=== PATIENT | male | born 1950 | race Caucasian/White ===

== ENCOUNTER → 2016-08-30 | Day surgery (SDC) | payer BC ==
[~2016-08-30] MED LIST: ACETAMINOPHEN PO; ALPRAZOLAM PO; AMLODIPINE BESY10 MG PO; ANTIVERT12.5 MG PO; ARAVA10 MG PO; ASPIRIN325 M1 PO; ATENOLOL PO; ATIVAN2 MG PO; LEVOXYL50 MC1 PO; MEVACOR PO; OMEPRAZOLE20 M2 PO; PRAVASTATIN SOD40 MG PO; PRILOSEC PO; SULFADIAZINE500 M1 PO
--- NOTE | ~2016-08-30 | OR ---
Unit #: [id number] #: [id number] Patient: TONI GRIFFITH [id number] [address] [place], [place] [address] [id number] O MR#: [id number] NAME: TONI GRIFFITH ROOM: Date of Procedure: 08/30/2016 Admission Date: 08/30/2016 Surgeon: Thanh Vigil M.D. : 1950 Attending Physician: Thanh Vigil M.D. Primary Care Physician: Juan Herring M.D. OPERATIVE REPORT PREOPERATIVE DIAGNOSES Dysphagia. The patient has foreign body sensation as well as episodes of solid food impaction of the esophagus frequently. PROCEDURES PERFORMED Upper gastrointestinal endoscopy and biopsy. POSTOPERATIVE DIAGNOSES 1. Skqr-zw-skpixxns prepyloric antral gastritis. 2. There was extrinsic impression in the mid esophagus, the etiology of which is unclear; however, no intrinsic stricture was seen. 3. An inlet patch in the proximal esophagus and island of columnar mucosa, which is coincidental. 4. Rest of the examination up to third part of duodenum was normal. RECOMMENDATIONS 1. An outpatient CT scan of the chest is being done to look for any extrinsic pressure on the esophagus accounting for the endoscopic appearances. 2. The results of the CLOtest to be followed up in the outpatient clinic. 3. The patient is advised to increase the dose of omeprazole from 20 mg p.o. daily to 40 mg p.o. daily. If the CT scan is negative, the patient will have an outpatient ENT evaluation as well as modified swallow study. SEDATION USED MAC. DESCRIPTION OF PROCEDURE Following detailed explanation of potential risks and complications of an upper endoscopy, namely perforation, bleeding, and complication related to sedation, the patient was brought to GI lab and laid in the left lateral decubitus position. Lubricated tip of the Olympus video upper endoscope was passed through the bite block into the proximal esophagus under direct vision. The entire esophageal mucosa was examined. The patient was noted to have an inlet patch in the proximal esophagus with islands of columnar mucosa that was circumferential. In addition, there was extrinsic impression or compression seen endoscopically in the mid esophagus. The etiology of this is unclear. The distal esophagus appeared normal. There being no esophagitis nor any evidence of stricture. The scope was then advanced into the gastric cavity and the latter was insufflated. Mucosa of the fundus, body, and antrum was examined. The patient was noted to have fhxu-bu-lzozilbi prepyloric antral diffuse erythema and erosions Unit #: [id number] #: [id number] Patient: TONI GRIFFITH indicating antral gastritis. Pylorus was intubated with visualization of the normal duodenal bulb and second and third part of the duodenum. Upon withdrawal and retroflexion, incisura, cardia, and greater curve was examined and biopsy was obtained from the antrum for CLOtest. The scope was then withdrawn in the distal esophagus. The entire esophageal mucosa was examined all the way up to pharynx. No additional findings were noted. The patient tolerated the procedure without any postprocedure complications. Dictated by... Tao Cottrell/david TD: 08/30/2016 16:13 JOB #: [id number] OPERATIVE REPORT X Thanh Vigil MD X PROCEDURE OPERATIVE NOTE
== END | disposition home or self-care (01) ==
LOC: COPS 10:32
DX: K29.70 Gastritis, unspecified, without bleeding (principal); I10 Essential (primary) hypertension; E78.5 Hyperlipidemia, unspecified; K21.9 Gastro-esophageal reflux disease without esophagitis; Z79.899 Other long term (current) drug therapy; Z96.612 Presence of left artificial shoulder joint; Z98.41 Cataract extraction status, right eye; Z98.42 Cataract extraction status, left eye; Z98.890 Other specified postprocedural states
CPT/HCPCS: 87077

== ENCOUNTER → 2016-09-09 | Outpatient (CLI) | payer BC ==
--- NOTE | ~2016-09-09 | CT55 ---
[facility] A Service of [facility] RADIOLOGY TEXT RESULTS PATIENT: TONI GRIFFITH LOCATION: [facility] : 54 UNIT #: [id number] AGE: [address]: Thanh Vigil MD SEX: M ORDER DR: [id number] [facility] [address]. [place], [place] [address] [id number] O MR#: [id number] [facility] #: [id number] NAME: TONI GRIFFITH : 1950 SEX: M STUDY DATE/TIME: 09/09/2016 UNIT: [facility] ROOM: STUDY DESCRIPTION: CT Chest W Con Attending Physician: Thanh Vigil M.D. Referring Physician: Thanh Vigil M.D. Ordering Physician: Thanh Vigil M.D. Primary Care Physician: Juan Herring M.D. MEDICAL IMAGING REPORT This report is preliminary unless electronic signature is present EXAM CT chest with contrast 09/09/2016 08:34 hours HISTORY 66-year-old man with 2-month history of dysphagia, epigastric compression seen on EGD 2 months ago. COMPARISON Chest x-ray 08/12/[address] images were obtained from the thoracic inlet. Inlet through the adrenal glands. Sagittal and coronal reconstructions were performed. Contrast was Isovue-370 70 mL IV. Total exam DLP 966 mGy-cm. The CT exam was performed with one or more of the following radiation dose reduction techniques: automatic exposure control, adjustment of mA and/or kV according to patient size, and iterative reconstruction. FINDINGS Images through the thoracic inlet demonstrate no thyroid mass or adenopathy. Images through the chest demonstrate an ascending aortic aneurysm which is fusiform measuring up to 4.2 cm. There are coronary artery calcifications present. Cardiac chambers, pericardium and esophagus appear normal. There is no adenopathy. The lungs demonstrate a few small blebs with emphysematous change and calcified granulomatous change. There is no acute pulmonary densities or pleural fluid. Limited views through the upper abdomen demonstrate a normal appearance to [facility] A Service [facility] RADIOLOGY TEXT RESULTS PATIENT: TONI GRIFFITH [id number] [birth year] UNIT #: [id number] AGE: [address]: Thanh Vigil MD SEX: M ORDER DR: the liver, spleen and adrenal glands. The stomach is contracted and unopacified. No gastric mass is seen. There is no definite wall thickening although evaluation is limited by its contracted, unopacified appearance. IMPRESSION 1. There are emphysematous changes present. The lungs are clear with no effusions. 2. There is a fusiform ascending aortic aneurysm measuring up to 4.2 cm. 3. The unopacified esophagus and stomach appear normal. The stomach is contracted. No mass lesion is detected. Dictated by... Tamara Parada M.D. THIS IS AN ELECTRONICALLY VERIFIED REPORT Tamara Parada M.D. at 09/09/2016 3:43 PM SMM/praful TD: 09/09/2016 15:25 JOB #: [id number] MEDICAL IMAGING REPORT COPY
[2016-09-09 08:46] LABS: POC - CREATININE 0.93 mg/dL (0.64-1.27); POC - GFR >60.0 mL/min (>60)
== END | disposition home or self-care (01) ==
LOC: CCAT 07:53
PROVIDERS: Internal Medicine Gastroenterology
DX: R13.10 Dysphagia, unspecified (principal); J43.9 Emphysema, unspecified; I71.4 Abdominal aortic aneurysm, without rupture
CPT/HCPCS: 71260; 82565; Q9967

== ENCOUNTER → 2016-10-28 | Outpatient (CLI) | payer BC, OTHER ==
--- NOTE | ~2016-10-28 | CR97 ---
[facility] A Service of [facility] RADIOLOGY TEXT RESULTS PATIENT: TONI GRIFFITH LOCATION: [facility] : 54 UNIT #: [id number] AGE: [address]: Thanh Vigil MD SEX: M ORDER DR: [id number] [facility] [address] [place], [place] [address] [id number] O MR#: [id number] Acc #: [id number] NAME: TONI GRIFFITH : 1950 SEX: M STUDY DATE/TIME: 10/28/2016 7:50 UNIT: [facility] ROOM: STUDY DESCRIPTION: CR Esophagram Attending Physician: Thanh Vigil M.D. Referring Physician: Thanh Vigil M.D. Ordering Physician: Thanh Vigil M.D. Primary Care Physician: Juan Herring M.D. MEDICAL IMAGING REPORT This report is preliminary unless electronic signature is present EXAM Barium esophagram HISTORY Food getting stuck in esophagus for 2-3 months. EGD 1 month ago with an extrinsic defect. TECHNIQUE Under fluoroscopic control, barium and crystals were administered orally. Swallowing was normal. Patient was placed in the recumbent position and filled views obtained. FINDINGS The patient does have mild aortic ectasia with extrinsic compression upon the esophagus. The esophagus is intrinsically normal. Swallowing was intrinsically normal. There is no evidence of significant hiatal hernia. There is slightly delayed esophageal emptying. Barium capsule was administered and was swallowed without difficulty and passed immediately into the stomach. CONCLUSION Somewhat delayed esophageal emptying which could reflect some changes of presbyesophagus. The esophagus is otherwise normal. Mild aortic ectasia with a prominent impression upon the esophagus. Dictated by... Medhat Forrest M.D. THIS IS AN ELECTRONICALLY VERIFIED REPORT Medhat Forrest M.D. at 10/28/2016 4:52 PM ASHLEY/macey [facility] A Service of [facility] RADIOLOGY TEXT RESULTS PATIENT: TONI GRIFFITH LOCATION: [facility] : 54 UNIT #: [id number] AGE: [address]: Thanh Vigil MD SEX: M ORDER DR: TD: 10/28/2016 14:31 JOB #: [id number] MEDICAL IMAGING REPORT Page 1 of 1 COPY
== END | disposition home or self-care (01) ==
LOC: CRAD 07:17
DX: R13.10 Dysphagia, unspecified (principal)
CPT/HCPCS: 74220

== ENCOUNTER → 2016-12-11 | Outpatient (CLI) | payer BC | END | disposition home or self-care (01) | LOC: CRAD 10:50 | DX: R13.10 Dysphagia, unspecified (principal) | CPT/HCPCS: 74230; 92611; G8996-GN; G8997-GN; G8998-GN ==